=== PATIENT | male | born 1980 | race Caucasian/White ===

== ENCOUNTER → 2016-12-26 | Outpatient (CLI) | payer OTHER ==
[~2016-12-26] MED LIST: LEVO200T6 PO; MULT-513 PO
[2016-12-26 18:45] LABS: BASO % 0.5 %; BASO ABS # 0.05 K/uL (0-0.2); COMPLETE YES; EOS % 0.6 %; HEMATOCRIT 43.1 % (42-52); IG% 0.2 %; LYMPH % 32.3 %; MEAN CELL VOLUME 88.5 fL (80-100); MEAN CORPUSCULAR HEMOGLOBIN 31.6 pg (25-34); MEAN CORPUSCULAR HGB CONC 35.7 g/dl (32-36); MEAN PLATELET VOLUME 9.7 fL (7.4-10.4); MONO % 5.5 %; NEUT % 60.9 %; PLATELET COUNT 251 K/uL (130-400); RED BLOOD COUNT 4.87 M/uL (4.7-6.1); WHITE BLOOD COUNT 10.23 K/uL (4.8-10.8)
[2016-12-26 18:56] LABS: ALT/SGPT 65 U/L (12-78); AST/SGOT 29 U/L (15-37); BLOOD UREA NITROGEN 17 mg/dl (7-18); BUN/CREATININE RATIO 15.6 (10-20); CALCIUM 8.9 mg/dl (8.5-10.1); CARBON DIOXIDE 26 mmol/L (21-32); CHLORIDE 106 mmol/L (98-107); GLUCOSE 92 mg/dl (70-99); POTASSIUM 4.1 mmol/L (3.5-5.1); SODIUM 142 mmol/L (136-145)
[2016-12-26 19:06] LABS: ALB/GLOB RATIO 1.2 (0.9-2); ALKALINE PHOSPHATASE 96 U/L (45-117)
== END | disposition home or self-care (01) ==
LOC: C.LABSPEC 12:59
PROVIDERS: ATTEND Internal Medicine
DX: R53.83 Other fatigue (principal); E03.9 Hypothyroidism, unspecified

== ENCOUNTER → 2017-02-11 | Outpatient (CLI) | payer OTHER ==
--- NOTE | 2017-02-12 06:32 | SPLIT NIGHT TECHNICIAN REPORT ---
[facility] Split Night Polysomnogram - Camp Assistant Report Study date: 02/11/2017 Referring Physician: DR. STARK Name: MAIKOL LYONS Camp Assistant: ALLYSON Mora. Date of : 1980 Height: 36 years, Height 5' 11.5" Sex: Male Weight: 270 lbs Age: 36 Neck Circum: 18.5 in BMI: Medications: 37.13 LEVOTHYROXINE 200 MCG Patient History 36 yr-old male here for a baseline/split study. He has a history of loud snoring, witnessed apneas, and daytime sleepiness. His Bowie scale is 18. The test was started on room air. ETCO2 testing was not utilized during this study. Room 3 Parameters Monitored NPSG: E1-M2, E2-M1, Fp1-M2, Fp2-M1, F3-M2, F4-M2, F4-M1, C3-M2, C4-M2, C4-M1, O1-M2, O2-M2, O2-M1, T3-M2, T4-M1, P3-M2, P4-M1, CHIN1, CHIN2, HR, EKG, Legs, PFLOW, SNOR, FLOW, CFLOW, Tidal Volume, THOR, ABDO, SpO2, PLTH, CPRESS, ETCO2 Wave, ETCO2, pH SLEEP SUMMARY DATA DIAGNOSTIC TREATMENT Lights Out: 10:23:52 PM 1:29:52 AM Lights On: 1:13:52 AM 5:35:22 AM Total Recording Time (TRT): 170.0 min. 245.5 min. Total Sleep Time (TST): 139.5 min. 223.5 min. NREM Time: 126.0 min. 167.0 min. REM Time: 13.5 min. 56.5 min. Sleep Period Time (SPT): 157.5 min. 241.0 min. Sleep Efficiency (SE): 82 % 91 % Sleep Latency: 12.5 min. 4.5 min. Arousal Index: 24.9 14.2 PAP Treatment Levels: 4, 6, 8, 9, 10 * Optimal Pressure(s) SLEEP STAGING DATA DIAGNOSTIC TREATMENT Duration (min) TST % Duration (min) TST % Stage Wake: 30.5 min. -- 22.0 min. -- WASO: 18.0 min. -- 17.5 min. -- NREM: 126.0 min. 90 % 167.0 min. 75 % Stage N1: 17.5 min. 13 % 24.5 min. 11 % Stage N2: 85.0 min. 61 % 121.0 min. 54 % Stage N3: 23.5 min. 17 % 21.5 min. 10 % REM: 13.5 min. 10 % 56.5 min. 25 % POSITIONAL DATA Event Count Index Event Count Index Supine: 215 94.0 55 18.6 Supine NREM: 192 93.6 53 23.1 Supine REM: 23 98 2 4 Non-Supine: 6 39.0 5 1.6 Non-Supine NREM: 6 39.0 5 2.3 Non-Supine REM: N/A N/A 0 0.0 AROUSAL SUMMARY DATA: Event Count Index Event Count Index Apnea Arousals: 29 59.8 5 2.4 Hypopnea Arousals: 14 6.0 10 2.7 Snore Arousals: 3 1.3 2 0.5 PLM Arousals: 0 0.0 5 1.3 Non-Specific Arousals: 5 2.2 19 5.1 Total Arousals: 58 24.9 53 14.2 MYOCLONUS (PLM) Event Count Index Event Count Index PLM: 23 9.9 119 31.9 PLM AROUSAL: 0 0.0 5 1.3 PLM W/O AROUSAL 23 9.9 114 30.6 PLM W/RESP EVENT 4 0.0 16 0.0 MYOCLONUS (PLM) Event Count Index Event Count Index LM: 1 68.8 52 14.0 LM AROUSAL: 1 0.4 2 0.5 LM W/O AROUSAL LM W/RESP EVENT LM NON SPECIFIC 54 23.2 130 34.9 HEART RATE DATA DIAGNOSTIC TREATMENT Sleep (bpm): 57 53 REM (bpm): 92 95 NREM (bpm): 93 94 Tachycardia Count: 0 0 Tachycardia Duration: 0.00 0 Bradycardia Count: 0 0 Bradycardia Duration: 0.00 0 DIAGNOSTIC PORTION TREATMENT PORTION RESPIRATORY DATA Event Count Index Event Count Index AHI: -- 91.6 -- 12.9 RDI: -- 95.1 -- 16 Obstructive Apnea: 117 50.3 0 0.0 Central Apnea: 1 0.4 9 2.4 Mixed Apnea: 21 9.0 0 0.0 Hypopnea: 74 31.8 39 10.5 RERA: 8 3.4 12 3.2 Total Apneas: 139 59.8 9 2.4 RESPIRATORY DATA REM NREM SLEEP REM NREM SLEEP Supine Position: Obstructive Apneas: 11 105 116 0 0 0 Central Apneas: 0 1 1 0 9 9 Mixed Apneas: 1 20 21 0 0 0 Hypopneas: 10 61 71 2 35 37 RERA 1 5 6 0 9 9 Total Supine Events: 23 192 215 2 53 55 Supine AHI: 98 93.6 94.0 4 23.1 18.6 Supine RDI: 102.2 96.1 96.7 3.6 27.8 22.3 REM NREM SLEEP REM NREM SLEEP Non-Supine Position: Obstructive Apneas: N/A 1 1 0 0 0 Central Apneas: N/A 0 0 0 0 0 Mixed Apneas: N/A 0 0 0 0 0 Hypopneas: N/A 3 3 0 2 2 RERA N/A 2 2 0 3 3 Total Supine Events: N/A 6 6 0 5 5 Supine AHI: N/A 39.0 39.0 0.0 2.3 1.6 Supine RDI: N/A 58.5 58.5 0.0 5.7 4.0 OXYGEN DESTAURATION DATA: Event Count Index Event Count Index REM Desaturations: 18 80.0 3 3.2 NREM Desaturations: 159 75.7 48 17.2 SNORE DATA DIAGNOSTIC TREATMENT Snore Time: 23.4 1:34:22 AM Snore TST%: 9 4 Snore Arousal Count: 3 2 Snore Arousal Index: 1.3 0.5 Desaturation Event Summary: Minimum %SpO2 Event Count Mean/Min/Max Duration(sec.) Desaturation Index % Time In Bed > 90 248 17.5 / 4.5 / 54.5 38.8 93.8 86 - 90 8 13.4 / 7.0 / 23.1 19.9 5.9 81 - 85 1 31.8 / 31.8 / 31.8 45.9 0.3 76 - 80 0 N/A 0.0 0.0 71 - 75 0 N/A 0.0 0.0 66 - 70 1 13.8 / 13.8 / 13.8 342.9 0.0 61 - 65 0 N/A 0.0 0.0 56 - 60 0 N/A 0.0 0.0 51 - 55 0 N/A 0.0 0.0 < 50 0 N/A 0.0 0.0 OXYGEN SATURATION DATA DIAGNOSTIC TREATMENT SpO2 Mean Sleep: 93 % 94 % SpO2 Mean REM: 92 % 95 % SpO2 Mean NREM: 93 % 94 % SpO2 Minimum Sleep: 81 % 88 % SpO2 Minimum REM: 81 % 90 % SpO2 Minimum NREM: 85 % 88 % Time Below 90% (TST): 12.9 0.2 Time Below 88% (TST): 3.1 0.0 Total REM NREM Awake <50% 0.0 min. 0.0 min. 0.0 min. 0.0 min. 51 - 60% 0.0 min. 0.0 min. 0.0 min. 0.0 min. 61 - 70% 0.2 min. 0.0 min. 0.0 min. 0.2 min. 71 - 80% 0.0 min. 0.0 min. 0.0 min. 0.0 min. 81 - 90% 25.4 min. 3.5 min. 20.9 min. 1.0 min. 91 - 100% 383.4 min. 66.5 min. 270.3 min. 46.7 min. Average 94 94 94 94 Minimum SpO2 70 81 85 70 Desaturation Event Index 36.2 18.0 42.4 32.0 # Desat. Events below 89% 58 10 44 4 Time(%) with Saturation below 89% 1.8 0.5 1.2 0.1 Time(min.) with Saturation below 89% 7.3 1.9 4.9 0.5 Recording Camp Assistant Comments: Mr. Lyons slept in the right and supine positions. No cardiac arrhythmias were noted. No bruxism noted. Snoring was noted and scored as a 3-4 on a scale of 1 through 5. (0=no snoring, 5=snoring loud enough to be heard through a closed door or down the rowell way). At 1:29 am, he met specific Split-Night criteria during the diagnostic portion of this study. CPAP was initiated at +4 CMH2O and up-titrated to a level of +10 CMH2O, Cflex 2. A Simplus full face mask size medium from [employer] was used during titration. He awoke to use the restroom one time during the night. Mr. Lyons stated that he slept the same as usual. The final report will be interpreted and signed by a sleep physician. The completed physician report will then be placed in the patient medical record. Therapy Event: Therapy (cm H20) 0 4 6 8 9 10 Total Time at Pressure (min.) 170.0 27.4 23.8 57.6 54.8 81.9 TST at Pressure (min.) 139.5 16.4 23.8 51.1 51.3 80.9 # Periods 1 1 1 1 1 1 Sleep Onset (min.) 12.5 4.5 0.0 0.0 0.0 0.0 REM Onset (min.) 114.5 N/A N/A 21.3 N/A 17.4 Sleep Efficiency % 82 59 100 88 93 98 Wakefulness (%) 17.9 40.1 0.0 11.3 6.4 1.2 Wakefulness (min.) 30.5 11.0 0.0 6.5 3.5 1.0 NREM 1 (%) 10.3 56.2 4.5 3.5 5.5 3.7 NREM 1 (min.) 17.5 15.4 1.1 2.0 3.0 3.0 NREM 2 (%) 50.0 3.6 95.5 45.3 62.6 45.0 NREM 2 (min.) 85.0 1.0 22.7 26.1 34.3 36.9 NREM 3 (%) 13.8 0.0 0.0 0.0 25.5 9.2 NREM 3 (min.) 23.5 0.0 0.0 0.0 14.0 7.5 REM (%) 7.9 0.0 0.0 39.9 0.0 40.9 REM (min.) 13.5 0.0 0.0 23.0 0.0 33.5 # Arousals 58 24 4 10 9 6 Arousal Index 24.9 87.7 10.1 11.7 10.5 4.5 # Snore 768 12 85 138 47 16 Snore Index 330.3 43.9 214.6 162.0 54.9 11.9 AHI 91.6 54.8 65.6 3.5 2.3 1.5 AHI Supine 94.0 54.8 65.6 33.1 4.8 1.5 AHI Non-Supine 39.0 N/A N/A 2.4 0.0 N/A NREM AHI 91.0 54.8 65.6 6.4 2.3 0.0 REM AHI 97.8 N/A N/A 0.0 N/A 3.6 RDI 95.1 62.1 68.2 5.9 8.2 3.0 # Obstructive 117 0 0 0 0 0 # Central Ap 1 5 4 0 0 0 # Mixed 21 0 0 0 0 0 # Hypopneas 74 10 22 3 2 2 RERAS 8 2 1 2 5 2 Total Respiratory Events 221 17 27 5 7 4 Time Below SpO2 89.00% (min.) 6.8 0.0 0.0 0.0 0.0 0.0 Mean NREM SpO2 (%) 93 95 94 95 95 94 Mean REM SpO2 (%) 92 N/A N/A 95 N/A 94 Mean Sleep SpO2 (%) 93 95 94 95 95 94 Min NREM SpO2 (%) 85 90 88 89 92 92 Min REM SpO2 (%) 81 N/A N/A 93 N/A 90 Position Supine (min.) 133.3 16.4 23.8 1.8 25.1 80.9 Position Non-supine (min.) 6.2 0.0 0.0 49.3 26.2 0.0 LM Index Sleep 78.7 51.2 161.5 78.7 10.5 12.6 LM Index NREM 80.5 51.2 161.5 89.6 10.5 6.3 LM Index REM 62.2 N/A N/A 65.2 N/A 21.5 Mean Heart Rate (bpm) 57 55 52 55 53 52 Min Heart Rate (bpm) 47 48 46 46 46 41
--- NOTE | 2017-02-14 11:36 | POLYSOMNOGRAPH REPORT ---
CLINICAL DATA: A 36-year-old male with BMI of 37.[address] Mendez and Dr. Rojas for symptoms of obstructive sleep apnea with loud snoring, witnessed apnea and daytime sleepiness. His [place] Sleepiness Score is 18/24. This was a split night study. SLEEP ARCHITECTURE: For the diagnostic portion of the study, total sleep period was 157.5 minutes. Total sleep time was 139.5 minutes divided between 126 minutes of non-REM sleep and 13.5 minutes of REM sleep. Sleep latency was 12.5 minutes. Sleep efficiency was 82%. Arousal index was 24.9. Sleep consisted of stage N1 13%, N2 61%, N3 17%, REM 10%. For the treatment portion of the study, total sleep period was 241 minutes. Total sleep time was 223.5 minutes divided between 167 minutes of non-REM sleep and 56.5 minutes of REM sleep. Sleep onset latency was 4.5 minutes. Sleep efficiency was 91%. Arousal index was 14.2. Sleep consisted of stage N1 11%, N2 54%, N3 10%, REM 25%. AROUSAL DATA: Prior to treatment, 58 arousals were recorded for an index of 24.9 per hour. Following treatment, 53 arousals were recorded for an index of 14.2 per hour. PLM DATA: Prior to treatment, 54 limb movements during sleep were noted for an index of 20.2 per hour. Following treatment 130 limb movements during sleep were noted for an index of 34.9 per hour. EKG: Heart rates ranged from 53 and 95 beats per minute. No arrhythmias were noted. RESPIRATORY DATA: Prior to treatment, severe obstructive sleep apnea/hypopnea was documented. The AHI was 91.6. There were 117 obstructive, 1 central, and 21 mixed apneic episodes. There were 74 hypopneic episodes. The mean AHI following treatment was 12.9. There were 9 central apneic episodes and 39 hypopneic episodes recorded. OXIMETRY DATA: Nocturnal hypoxemia was seen prior to treatment. Oxygen diana was 81% prior to treatment. Mean saturation following treatment was 94%. DIRECTOR SURGICAL'S COMMENTS AND TREATMENT SUMMARY: The patient slept in the right and supine positions. Snoring was severe, rated 3-4 on a scale of 1-5. At 1:29 a.m. he met split night criteria. A Simplus full facemask medium size from [employer] was used. The patient was started on CPAP and titrated up to his optimal pressure setting of 10 cm water pressure. At 10 cm water pressure, the patient slept for 81 minutes with an AHI of 1.5. IMPRESSION: Very severe sleep apnea/hypopnea with an AHI of 91.6 corrected with CPAP 10 cm of water pressure, C-Flex setting 2 utilizing Simplus full face mask size medium from [employer]. RECOMMENDATIONS: The patient should be started on the above noted treatment regimen and seen back in followup within 90 days to document efficacy and compliance. MTDD
== END | disposition home or self-care (01) ==
LOC: C.NEUR 21:00
PROVIDERS: ATTEND Internal Medicine Pulmonary Disease
DX: G47.33 Obstructive sleep apnea (adult) (pediatric) (principal)

== ENCOUNTER → 2017-06-08 | Outpatient (CLI) | payer OTHER ==
[2017-06-08 18:50] LABS: THYROID STIMULATING HORMONE 24.8 uIu/ml (0.300-4.500)
[2017-06-08 20:14] LABS: HEPATITIS B AB POS
== END | disposition home or self-care (01) ==
LOC: C.LABSPEC 17:06
PROVIDERS: ATTEND Internal Medicine
DX: E03.9 Hypothyroidism, unspecified (principal); Z20.2 Contact with and (suspected) exposure to infections with a predominantly sexual mode of transmission

== ENCOUNTER → 2018-01-29 | Outpatient (CLI) | payer OTHER ==
[2018-01-29 18:17] LABS: BASO % 0.3 %; BASO ABS # 0.02 K/uL (0-0.2); EOS % 1.2 %; EOS ABS # 0.09 K/uL (0-0.5); HEMATOCRIT 43.2 % (42-52); HEMOGLOBIN 14.2 g/dL (14.0-18.0); IG# 0.02 K/uL (0.00-0.02); LYMPH % 31.6 %; LYMPH ABS # 2.32 K/uL (1.2-3.4); MEAN CELL VOLUME 90.4 fL (80-100); MEAN CORPUSCULAR HEMOGLOBIN 29.7 pg (25-34); MEAN CORPUSCULAR HGB CONC 32.9 g/dl (32-36); MEAN PLATELET VOLUME 9.6 fL (7.4-10.4); MONO % 10.5 %; MONO ABS # 0.77 K/uL (0.11-0.59); NEUT % 56.1 %; NEUT ABS # 4.12 K/uL (1.4-6.5); PLATELET COUNT 214 K/uL (130-400); RED CELL DISTRIBUTION WIDTH CV 14.9 % (11.5-14.5); RED CELL DISTRIBUTION WIDTH SD 49.3 fL (36.4-46.3); WHITE BLOOD COUNT 7.34 K/uL (4.8-10.8)
[2018-01-29 18:31] LABS: ALBUMIN 3.3 gm/dl (3.4-5.0); ALKALINE PHOSPHATASE 111 U/L (45-117); ALT/SGPT 23 U/L (12-78); AST/SGOT 15 U/L (15-37); BLOOD UREA NITROGEN 11 mg/dl (7-18); CALCIUM 8.6 mg/dl (8.5-10.1); CARBON DIOXIDE 26 mmol/L (21-32); CREATININE 0.93 mg/dl (0.60-1.40); GLUCOSE 118 mg/dl (70-99); SODIUM 140 mmol/L (136-145); TOTAL PROTEIN 7.5 gm/dl (6.4-8.2)
== END | disposition home or self-care (01) ==
LOC: C.LABSPEC 09:48
PROVIDERS: ATTEND Internal Medicine
DX: R53.83 Other fatigue (principal); I10 Essential (primary) hypertension; E03.9 Hypothyroidism, unspecified; G40.909 Epilepsy, unspecified, not intractable, without status epilepticus

== ENCOUNTER → 2018-03-05 | Outpatient (CLI) | payer OTHER ==
[2018-03-05 15:24] LABS: BASO % 0.3 %; BASO ABS # 0.02 K/uL (0-0.2); EOS % 0.6 %; EOS ABS # 0.04 K/uL (0-0.5); HEMATOCRIT 44.4 % (42-52); HEMOGLOBIN 15.3 g/dL (14.0-18.0); IG# 0.03 K/uL (0.00-0.02); LYMPH % 27.4 %; LYMPH ABS # 1.98 K/uL (1.2-3.4); MEAN CELL VOLUME 91.5 fL (80-100); MEAN CORPUSCULAR HEMOGLOBIN 31.5 pg (25-34); MEAN CORPUSCULAR HGB CONC 34.5 g/dl (32-36); MEAN PLATELET VOLUME 8.9 fL (7.4-10.4); MONO % 9.3 %; MONO ABS # 0.67 K/uL (0.11-0.59); NEUT ABS # 4.49 K/uL (1.4-6.5); PLATELET COUNT 186 K/uL (130-400); RED CELL DISTRIBUTION WIDTH CV 14.2 % (11.5-14.5); RED CELL DISTRIBUTION WIDTH SD 47.9 fL (36.4-46.3); WHITE BLOOD COUNT 7.23 K/uL (4.8-10.8)
[2018-03-05 15:43] LABS: ALBUMIN 3.4 gm/dl (3.4-5.0); ALT/SGPT 20 U/L (12-78); BLOOD UREA NITROGEN 12 mg/dl (7-18); CARBON DIOXIDE 28 mmol/L (21-32); CREATININE 1.02 mg/dl (0.60-1.40); GLUCOSE 117 mg/dl (70-99); POTASSIUM 3.7 mmol/L (3.5-5.1); SODIUM 139 mmol/L (136-145)
[2018-03-05 15:54] LABS: ALKALINE PHOSPHATASE 110 U/L (45-117); AST/SGOT 11 U/L (15-37); TOTAL PROTEIN 7.5 gm/dl (6.4-8.2)
== END | disposition home or self-care (01) ==
LOC: C.LAB 14:55
PROVIDERS: ATTEND Psychiatry & Neurology Neurology
DX: S06.9X9D Unspecified intracranial injury with loss of consciousness of unspecified duration, subsequent encounter (principal); X58.XXXD Exposure to other specified factors, subsequent encounter; Z51.81 Encounter for therapeutic drug level monitoring; R53.83 Other fatigue

== ENCOUNTER → 2018-07-08 | Outpatient (CLI) | payer OTHER ==
--- NOTE | 2018-07-08 16:48 | EEG Procedure Note ---
EEG Procedure Note Date of Service Jul 08, 2018. Start / End Times Start Time: 2:32 p.m. End Time: 2:[address] Valentino Baltazar History History of seizures. Traumatic brain injury. Home Medication List Scheduled Levothyroxine Sodium (Levothyroxine Sodium), 200 MCG PO DAILY Multivitamins/Minerals (Mvi With Minerals), 1 TAB PO DAILY Description This is a 21 electrode EEG with a single channel dedicated to limited EKG. The electrodes were placed in accordance with the International 10-20 system. There is a posterior dominant rhythm of 9-10 hertz that is symmetric distributed and attenuates with eye opening. There is a normal anterior to posterior organization. Photic stimulation is unremarkable. There is fairly continuous, moderate amplitude, left temporal slowing in the theta frequency range seen throughout the study. No epileptiform abnormalities observed. Interpretation This EEG reveals findings suggestive of a left temporal lobe structural or functional abnormality. Clinical Correlation The observed focal slowing may be consistent with this patient's history of traumatic brain injury. Epileptiform abnormalities were not observed, however. Further clinical correlation may be needed.
== END | disposition home or self-care (01) ==
LOC: C.NEUR 13:50
PROVIDERS: ATTEND Physical Medicine & Rehabilitation
DX: R56.9 Unspecified convulsions (principal)

== ENCOUNTER 2022-06-20 13:38 | Observation (INO) ==
--- NOTE | 2022-06-20 14:44 | XRay Report ---
RIGHT ANKLE 2 VIEWS CLINICAL HISTORY: Fall. Right ankle injury. FINDINGS: AP and lateral views of the right ankle are obtained. No prior studies are available for co mparison at the time of dictation. The skeletal structures are well mineralized. There is a trimalleo lar fracture of the right ankle joint. A comminuted and displaced spiral fracture of the distal fibul a is noted. There is lateral distraction of the distal fibula by 8 mm. There is a displaced fracture through the medial malleolus. The medial malleolus is displaced approximately 12 mm laterally. There is a vertically oriented nondisplaced fracture through the posterior tibial plafond. Fragments are se parated by approximately 2 mm. There is widening of the anterior joint space at the tibiotalar articu lation. There is lateral distraction of the talus at the tibiotalar joint by approximately 13 mm. The re is also dorsal displacement of the talus by approximately 1 cm. There is valgus deformity at the a nkle joint. There is a joint effusion. Significant overlying soft tissue edema is noted. A large dors al calcaneal enthesophyte is noted. IMPRESSION: Trimalleolar fracture/dislocation of the ankle joint as above. Electronically signed by: Prabhu Wilkins M.D. 06/20/2022 2:42 PM
[2022-06-20] MEDS ORDERED: MoRPHine SULFATE 4 MG/ML 1 ML CARP\\VIAL IV PRN (15:18)
[2022-06-20] MEDS ORDERED: ONDANSETRON INJ 2 MG/ML 2 ML VIAL IV STA (15:18)
[2022-06-20] MEDS ORDERED: fentaNYL citrate 100 MCG/2 ML VIAL IV STA (16:25)
--- NOTE | 2022-06-20 17:27 | XRay Report ---
XR ankle RT min 3V routine CLINICAL HISTORY: s/p reduction TECHNIQUE: 3 views of the right ankle were obtained. Comparison: Comparison is made to chest radiograph 06/20/2022 FINDINGS: Status post reduction and placement of a cast which limits evaluation of fine bony detail. The fractu re fragments are in grossly anatomic alignment and in particular the ankle mortise is intact and appr oximates and than in the prior exam. Soft tissue swelling is seen about the ankle. IMPRESSION: Status post reduction. The fracture fragments are in gross anatomical alignment. ACT 112: Negative or not required by law. Electronically signed by: John Dalal M.D. 06/20/2022 5:25 PM
[2022-06-20] MEDS ORDERED: oxyCODONE/ACETAMINOPHEN 5mg/325mg TAB PO PRN (17:36)
[2022-06-20] MEDS ORDERED: diphenhydrAMINE Capsule 25 MG CAP PO PRN (17:36)
[2022-06-20] MEDS ORDERED: ZOLPIDEM TARTRATE 5 MG TAB PO PRN (17:36)
[2022-06-20] MEDS ORDERED: ALUMINUM/MAGNESIUM SUSP 30 ML UDC PO PRN (17:36)
[2022-06-20] MEDS ORDERED: ONDANSETRON INJ 2 MG/ML 2 ML VIAL IV PRN ×2 (17:36→18:43)
[2022-06-20] MEDS ORDERED: METOCLOPRAMIDE HCL INJ 5 MG/ML 2 ML VIAL IV PRN (17:36)
[2022-06-20] MEDS ORDERED: MAGNESIUM HYDROXIDE SUSP 30 ML UDC PO PRN (17:36)
[2022-06-20 17:46] LABS: Basophils # (auto) 0.04 K/uL (0-0.2); Basophils % (auto) 0.3 %; Eosinophils # (auto) 0.01 K/uL (0-0.50); Eosinophils % (auto) 0.1 %; Hemoglobin 14.6 g/dl (14.0-18.0); Immature Granulocytes # (auto) 0.07 K/uL (0.00-0.02); Immature Granulocytes % (auto) 0.5 %; Lymphocytes % (auto) 15.3 %; Mean Corpuscular Hemoglobin 30.9 pg (25.0-34.0); Mean Corpuscular Hgb Conc 33.2 g/dL (32.0-36.0); Mean Platelet Volume 9.2 fL (9.4-12.4); Monocytes # (auto) 0.73 K/uL (0.24-0.82); Monocytes % (auto) 5.3 %; Neutrophils # (auto) 10.81 K/uL (1.4-6.5); Neutrophils % (auto) 78.5 %; Platelet Count 257 K/uL (130-400); RDW Coefficient of Variation 11.9 % (11.5-14.5); RDW Standard Deviation 40.5 fL (36.4-46.3); Red Blood Count 4.73 M/uL (4.63-6.08); White Blood Count 13.76 K/ul (4.8-10.8)
[2022-06-20 18:05] LABS: Albumin Globulin Ratio 1.3 (0.9-2); Albumin Level 4.1 gm/dl (3.4-5.0); BUN Creatinine Ratio 9.8 (10-20); Bilirubin,Total 0.9 mg/dl (0.2-1.0); Calcium 9.1 mg/dl (8.5-10.1); Creatinine Clr Calc Pharmacy 119.3 ml/min; Est GFR (African American) 92.7 ml/min; Globulin 3.1 gm/dl (2.5-4.0); Potassium 4.6 mmol/L (3.5-5.1); Total Protein 7.2 gm/dl (6.0-8.3)
[2022-06-20] MEDS ORDERED: ePHEDrine sulfate 50 MG/ML AMP IV PRN (18:43)
[2022-06-20] MEDS ORDERED: ATROPINE SULFATE 0.1 MG/ML 10ML SYR IV PRN (18:43)
[2022-06-20] MEDS ORDERED: HYDROmorphone INJ 2 MG/ML SYR/VIAL IV PRN (18:43)
--- NOTE | 2022-06-20 18:43 | Anesthesiology Consultation ---
Date of Service June 20, 2022 Assessment & Plan ASA ASA3 Proposed Anesthesia Anesthesia Type: General Risk / Benefits Reviewed With: PT / POA / Parent / Guardian, Accepts Plan and Informed Consent Obtained History Surgery Operation Date: 06/20/22 13:05 Proposed Procedures p Right Trimalleolar Open Reduction Internal Fixation Ankle - Sedrick Navarrete DO Height/Weight Height: 6 ft Weight: 131.6 kg Allergies Allergy/AdvReac Type Severity Reaction Status Date / Time Cephalosporins Allergy Unknown KEFLEX Verified 05/29/19 22:15 Sulfa (Sulfonamide Allergy Unknown Verified 05/29/19 22:15 Antibiotics) Medications Home Medications Medication Instructions Recorded Confirmed Last Taken amlodipine 5 mg tablet 5 mg PO QAM 05/29/19 05/29/19 05/29/19 levothyroxine 200 mcg tablet 200 mcg PO QAM 05/29/19 05/29/19 05/29/19 levothyroxine 25 mcg tablet 25 mcg PO QAM 05/29/19 05/29/19 05/29/19 meclizine 25 mg tablet 25 mg PO TID PRN dizziness #15 tabs 05/29/19 Unknown ondansetron 4 mg disintegrating 4 mg PO Q6H PRN nausea and 05/29/19 Unknown tablet vomiting #10 tabs Active Medications Generic Name Dose Route Start Last Admin Trade Name Freq PRN Reason Stop Dose Admin Morphine Sulfate 4 mg 06/20/22 15:18 06/20/22 15:39 Morphine Sulfate 4 Mg/Ml 1 Ml Carp\Vial IV 07/04/22 15:17 4 mg Q30M PRN Administration Pain NPO Date Last Intake of Fluids: 06/20/22 Time Last Intake of Fluids: 14:00 Last Intake of Fluids Comment: 6oz of gatorade Date Last Intake of Solids: 06/19/22 Time Last Intake of Solids: 17:00 Exercise / Class Metabolic Activity II 4-5 Yardwork/Stairs/Walk up hill Past Surgical History Surgical History History of appendectomy Past Anesthesia History No Hx of Anesthesia Complications and No Family Hx of Anesthesia Complications History of PONV No Hx of PONV and No Hx of Motion Sickness Social History Smoking Status: Never smoker Review of Systems denies fever/cough/ colds/ chest pain/ SOB/ +MARAH denies MARAH Physical Exam Vital Signs Last Vital Signs Temp 36.8 C 06/20/22 18:17 Pulse 72 06/20/22 18:17 Resp 18 06/20/22 18:17 BP 144/89 H 06/20/22 18:17 Pulse Ox 96 06/20/22 18:17 O2 Del Method 06/20/22 18:17 ENMT Mouth: no TMJ abnormality and no dentition abnormality Thyromental Distance: > or= 3.5 Finger Breadths Mallampati Class: II Neck + short neck, + thick neck and + facial hair; neck extension not limited Respiratory normal respiratory effort; no respiratory distress Auscultation: lungs clear to auscultation bilaterally Cardiovascular Rate/Rhythm: regular rate and regular rhythm Neurologic moves all extremities Psychiatric Orientation: alert and oriented x 3 Testing Laboratory Results 06/20/22 17:30 06/20/22 17:30
[2022-06-20] MEDS ORDERED: MIDAZOLAM HCL 1 MG/ML 2ML VIAL ONE (19:02)
[2022-06-20] MEDS ORDERED: fentaNYL citrate 100 MCG/2 ML VIAL ONE ×5 (19:02→22:58)
[2022-06-20] MEDS ORDERED: ONDANSETRON INJ 2 MG/ML 2 ML VIAL ONE (19:06)
[2022-06-20] MEDS ORDERED: LIDOCAINE 2% MPF LOCAL 5 ML VIAL INFIL ONE (19:06)
[2022-06-20] MEDS ORDERED: DEXAMETHASONE SOD INJ 4 MG/ML VIAL ONE (19:06)
[2022-06-20] MEDS ORDERED: ROCURONIUM BROMIDE 10 MG/ML 5 ML VIAL IV ONE (19:06)
[2022-06-20] MEDS ORDERED: PROPOFOL IV EMULSION 10 MG/ML 20 ML VIAL IV ONE (19:06)
[2022-06-20] MEDS ORDERED: ceFAZolin 330 MG/ML 1 GM VIAL ONE (19:17)
[2022-06-20] MEDS ORDERED: BUPIVACAINE 0.5 % 5 MG/1 ML MPF 30ML VIAL ONE (19:17)
[2022-06-20] MEDS ORDERED: BUPIVACAINE 0.25% 30 ML VIAL ONE (19:19)
--- NOTE | 2022-06-20 19:21 | History & Physical Report ---
Date of Service June 20, 2022 Assessment & Plan (1) Closed right trimalleolar fracture: Plan: plan for ORIF right ankle trimalleolar fracture, has been NPO today, did have some Gatorade around 1:00pm. will remain NPO, splint, Ice/elevate. plan to keep overnight for observation and remain NWB The risks and benefits have been discussed including, but not limited to, risk of infection, nerve injury, stiffness, loss of motion, failure to improve, etc. Reasonable outcomes and options of treatment were discussed. An explanation of appropriate alternatives to the procedure that may be advantageous were discussed and their risks and benefits, as well as the risks and benefits of not proceeding with treatment. I offered to answer any additional inquiries concerning the treatment involved. All the patient's questions were answered. The patient is agreeable, understanding of the treatment plan and alternatives, and wishes to proceed with the treatment plan. History of Present Illness Chief Complaint: right ankle injury Primary Care Provider: NO PCP Deep is a 41-year-old male presented to the emergency department after sustaining a fall and injuring his right ankle. Patient was in a chair similar to a rocking chair in his home, when the chair broke, and the patient landed awkwardly onto his ankle. He does not have any blood or bleeding. He is unable to ambulate. He rates the pain an 8/10 that worsens with certain movement. Allergies Allergy/AdvReac Type Severity Reaction Status Date / Time Cephalosporins Allergy Unknown KEFLEX Verified 05/29/19 22:15 Sulfa (Sulfonamide Allergy Unknown Verified 05/29/19 22:15 Antibiotics) Home Medications Medication Instructions Recorded Confirmed Type amlodipine 5 mg tablet 5 mg PO QAM 05/29/19 05/29/19 History levothyroxine 200 mcg tablet 200 mcg PO QAM 05/29/19 05/29/19 History levothyroxine 25 mcg tablet 25 mcg PO QAM 05/29/19 05/29/19 History meclizine 25 mg tablet 25 mg PO TID PRN dizziness #15 tabs 05/29/19 Rx ondansetron 4 mg disintegrating 4 mg PO Q6H PRN nausea and 05/29/19 Rx tablet vomiting #10 tabs Past Med/Surg History Surgical History History of appendectomy Social History Smoking Status: Never smoker Feels Safe at Home: Yes Review of Systems Review of Systems: All systems reviewed & are unremarkable except as noted in HPI & below Constitutional: no fever, no chills and no sweats Respiratory: no cough and no dyspnea Cardiovascular: no chest pain, no dyspnea and no orthopnea Gastrointestinal: no abdominal pain, no nausea and no vomiting Musculoskeletal: as per Subjective / HPI Physical Exam Physical Exam: Vital Signs Temp Pulse Pulse Resp BP BP Pulse Ox 06/20/22 18:17 36.8 C 72 18 144/89 H 96 06/20/22 17:31 72 19 138/81 93 06/20/22 17:00 70 19 93 06/20/22 15:39 75 18 94 06/20/22 13:53 36.8 C 78 20 149/97 H 98 O2 Del Method 06/20/22 18:17 Room Air 06/20/22 17:31 Room Air 06/20/22 17:00 Room Air 06/20/22 15:39 Room Air 06/20/22 13:53 Room Air Intake and Output 06/20/22 06/20/22 06/20/22 06:59 14:59 22:59 Other: Weight 131.6 kg Weight Measureme nt Method Built in [facility] Patient Weight 06/21/22 06:59 Weight 131.6 kg Constitutional: WD/WN, vitals as above no acute distress Respiratory: normal respiratory effort, lungs clear to auscultation no respiratory distress, no labored breathing and does not use accessory muscles Cardiovascular: RRR, no murmur, no edema Gastrointestinal (Abdomen): normal bowel sounds, soft, nontender, no hepatosplenomegaly Musculoskeletal: right ankle: currently splinted, calf SNT. sensation intact toes. thigh soft, non-tender Results & Data Results & Data ([facility]) Vital Signs (Past 12 Hours) Vital Signs Temp Pulse Pulse Resp BP BP Pulse Ox 06/20/22 18:17 36.8 C 72 18 144/89 H 96 06/20/22 17:31 72 19 138/81 93 06/20/22 17:00 70 19 93 06/20/22 15:39 75 18 94 06/20/22 13:53 36.8 C 78 20 149/97 H 98 O2 Del Method 06/20/22 18:17 Room Air 06/20/22 17:31 Room Air 06/20/22 17:00 Room Air 06/20/22 15:39 Room Air 06/20/22 13:53 Room Air Diagnostic Findings Laboratory Results WBC 13.76 K/ul (4.8-10.8) H 06/20/22 17:30 RBC 4.73 M/uL (4.63-6.08) 06/20/22 17:30 Hgb 14.6 g/dl (14.0-18.0) 06/20/22 17:30 Hct 44.0 % (40.1-51.0) 06/20/22 17:30 MCV 93.0 fL (80.0-100.0) 06/20/22 17:30 MCH 30.9 pg (25.0-34.0) 06/20/22 17: MCHC 33.2 g/dL (32.0-36.0) 06/20/22 17:30 RDW Std Deviation 40.5 fL (36.4-46.3) 06/20/22 17:30 RDW Coeff of Emily 11.9 % (11.5-14.5) 06/20/22 17: Plt Count 257 K/uL (130-400) 06/20/22 17:30 MPV 9.2 fL (9.4-12.4) L 06/20/22 17:30 Immature Gran % (Auto) 0.5 % 06/20/22 17:30 Neut % (Auto) 78.5 % 06/20/22 17:30 Lymph % (Auto) 15.3 % 06/20/22 17:30 [place] % (Auto) 5.3 % 06/20/22 17:30 Eos % (Auto) 0.1 % 06/20/22 17:30 Baso % (Auto) 0.3 % 06/20/22 17:30 Neut # (Auto) 10.81 K/uL (1.4-6.5) H 06/20/22 17:30 Lymph # (Auto) 2.10 K/uL (1.2-3.4) 06/20/22 17:30 [place] # (Auto) 0.73 K/uL (0.24-0.82) 06/20/22 17:30 Eos # (Auto) 0.01 K/uL (0-0.50) 06/20/22 17:30 Baso # (Auto) 0.04 K/uL (0-0.2) 06/20/22 17:30 Immature Gran # (Auto) 0.07 K/uL (0.00-0.02) H 06/20/22 17:30 Sodium 136 mmol/L (136-145) 06/20/22 17:30 Potassium 4.6 mmol/L (3.5-5.1) 06/20/22 17:30 Chloride 104 mmol/L (98-107) 06/20/22 17:30 Carbon Dioxide 26 mmol/L (21-32) 06/20/22 17:30 Anion Gap 6 (3-11) 06/20/22 17:30 BUN 11 mg/dl (6-23) 06/20/22 17:30 Creatinine 1.12 mg/dl (0.6-1.4) 06/20/22 17:30 Est Cr Clr Drug Dosing 119.3 ml/min 06/20/22 17:30 Est GFR ( Amer) 92.7 ml/min 06/20/22 17:30 Est GFR (Non-Af Amer) 80.0 ml/min 06/20/22 17:30 BUN/Creatinine Ratio 9.8 (10-20) L 06/20/22 17:30 Glucose 100 mg/dl (70-99(Fasting)) H 06/20/22 17:30 Calcium 9.1 mg/dl (8.5-10.1) 06/20/22 17:30 Total Bilirubin 0.9 mg/dl (0.2-1.0) 06/20/22 17:30 AST 26 U/L (13-39) 06/20/22 17:30 ALT 44 U/L (7-52) 06/20/22 17:30 Alkaline Phosphatase 103 U/L (34-104) 06/20/22 17:30 Total Protein 7.2 gm/dl (6.0-8.3) 06/20/22 17:30 Albumin 4.1 gm/dl (3.4-5.0) 06/20/22 17:30 Globulin 3.1 gm/dl (2.5-4.0) 06/20/22 17:30 Albumin/Globulin Ratio 1.3 (0.9-2) 06/20/22 17:30 SARS-CoV-2, RNA, NAAT NEGATIVE (NEGATIVE) 06/20/22 17:10 Impressions Ankle X-Ray 06/20/22 16:50 XR ankle RT min 3V routine CLINICAL HISTORY: s/p reduction TECHNIQUE: 3 views of the right ankle were obtained. Comparison: Comparison is made to chest radiograph 06/20/2022 FINDINGS: Status post reduction and placement of a cast which limits evaluation of fine bony detail. The fracture fragments are in grossly anatomic alignment and in particular the ankle mortise is intact and approximates and than in the prior exam. Soft tissue swelling is seen about the ankle. IMPRESSION: Status post reduction. The fracture fragments are in gross anatomical alignment. ACT 112: Negative or not required by law. Electronically signed by: John Dalal M.D. 06/20/2022 5:25 PM
--- NOTE | 2022-06-20 19:22 | Emergency Department Note ---
History of Present Illness General Chief complaint: Ankle Pain Stated complaint: R ANKLE PAIN Time Seen by Provider: 06/20/22 14:00 History of Present Illness Maximum Pain Intensity: 8 This is a 41-year-old male presenting to the emergency department for evaluation of right ankle pain after falling at home just prior to arrival. Patient was in a chair similar to a rocking chair in his home, when the chair broke, and the patient landed awkwardly onto his ankle. He does not have any blood or bleeding. He is unable to ambulate. He rates the pain an 8/10 that worsens with certain movement. He has not eaten today. He last drink Gatorade around 1 PM. Home Medications Medication Instructions Recorded Confirmed Type amlodipine 5 mg tablet 5 mg PO QAM 05/29/19 05/29/19 History levothyroxine 200 mcg tablet 200 mcg PO QAM 05/29/19 05/29/19 History levothyroxine 25 mcg tablet 25 mcg PO QAM 05/29/19 05/29/19 History meclizine 25 mg tablet 25 mg PO TID PRN dizziness #15 tabs 05/29/19 Rx ondansetron 4 mg disintegrating 4 mg PO Q6H PRN nausea and 05/29/19 Rx tablet vomiting #10 tabs Allergies Allergy/AdvReac Type Severity Reaction Status Date / Time Cephalosporins Allergy Unknown KEFLEX Verified 05/29/19 22:15 Sulfa (Sulfonamide Allergy Unknown Verified 05/29/19 22:15 Antibiotics) Past Med/Surg History Medical History Hypertension Hypothyroid Surgical History History of appendectomy Social History Smoking Status: Never smoker Feels Safe at Home: Yes Review of Systems A total of 10 systems reviewed and were otherwise negative Physical Exam Vital Signs Vital Signs - 24 hr 06/20/22 13:53 06/20/22 15:39 06/20/22 17:00 Temperature 36.8 C Temperature Source Temporal Artery Scan Pulse Rate 78 Pulse Rate [Finger] 75 70 Pulse Rhythm [Finger] Pulse Strength [Finger] Respiratory Rate 20 18 19 Respiratory Effort / Characteristics Non-Labored Non-Labored Spontaneous Non-Labored Spontaneous Respiratory Depth Normal Normal Normal Respiratory Pattern Blood Pressure 149/97 H Blood Pressure [Left Arm] Blood Pressure Mean 114 Blood Pressure Mean [Left Arm] Blood Pressure Position [Left Arm] Pulse Oximetry 98 94 93 Oxygen Delivery Method Room Air Room Air Room Air Sepsis Recent Fever Within 48 Hours No Sepsis New/Unexplained Change in Mental Status N/A Sepsis Action Taken by Nursing No Action Required 06/20/22 17:31 06/20/22 18:17 Temperature 36.8 C Temperature Source Oral Pulse Rate Pulse Rate [Finger] 72 72 Pulse Rhythm [Finger] Regular Pulse Strength [Finger] Normal Respiratory Rate 19 18 Respiratory Effort / Characteristics Non-Labored Spontaneous Non-Labored Spontaneous Respiratory Depth Normal Normal Respiratory Pattern Regular Blood Pressure Blood Pressure [Left Arm] 138/81 144/89 H Blood Pressure Mean Blood Pressure Mean [Left Arm] 100 107 Blood Pressure Position [Left Arm] Semi-fowlers Pulse Oximetry 93 96 Oxygen Delivery Method Room Air Room Air Sepsis Recent Fever Within 48 Hours Sepsis New/Unexplained Change in Mental Status Sepsis Action Taken by Nursing VITALS: Vitals are noted on the nurse's note and reviewed by myself. Vital signs stable. GENERAL: Well-developed, well-nourished, white male, who is in no acute distress and resting comfortably. Patient is cooperative with the examination. HEAD: Normocephalic atraumatic. HEART: Regular rate and rhythm without murmurs gallops or rubs. LUNGS: Clear to auscultation bilaterally without wheezes, rales or rhonchi. No retractions or accessory muscle use. MUSCULOSKELETAL: There is notable deformity of the right ankle with ecchymosis and edema. No blood or bleeding is identified. Neurovascular status appears intact distally. No tenderness of the right knee. No other musculoskeletal injuries noted. Compartments are soft. NEURO: Patient was alert and oriented to person place and time. CN II through XII grossly intact. GCS 15. Course Administered Medications Morphine Sulfate (Morphine Sulfate 4 Mg/Ml 1 Ml Carp\Vial) 4 mg IV Q30M PRN PRN Reason: Pain Stop: 07/04/22 15:17 Last Admin: 06/20/22 15:39 Dose: 4 mg Documented By: Discontinued Medications Cefazolin Sodium (Cefazolin 3000mg/72.5 Ml Bag) Confirm Administered Dose 3,000 mg IV .STData Maid-MED ONE Stop: 06/20/22 19:25 Last Admin: 06/20/22 19:33 Dose: 3,000 mg Documented By: [id number] Fentanyl Citrate (Fentanyl Citrate 100 Mcg/2 Ml Vial) 100 mcg IV NOW STA Stop: 06/20/22 16:26 Last Admin: 06/20/22 16:31 Dose: 100 mcg Documented By: KJ Ondansetron HCl (Ondansetron Inj 2 Mg/Ml 2 Ml Vial) 4 mg IV NOW STA Stop: 06/20/22 15:19 Last Admin: 06/20/22 15:37 Dose: 4 mg Documented By: MH Medical Decision Making Differential Diagnosis Differential diagnosis includes, but is not limited to: Sprain, strain, fracture, dislocation, subluxation, contusion, and others Laboratory Data Result diagrams: 06/20/22 17:30 06/20/22 17:30 Lab Results 06/20/22 06/20/22 06/20/22 Range/Units 17:10 17:30 17:30 WBC 13.76 H (4.8-10.8) K/ul RBC 4.73 (4.63-6.08) M/uL Hgb 14.6 (14.0-18.0) g/dl Hct 44.0 (40.1-51.0) % MCV 93.0 (80.0-100.0) fL MCH 30.9 (25.0-34.0) pg MCHC 33.2 (32.0-36.0) g/dL RDW Std Deviation 40.5 (36.4-46.3) fL RDW Coeff of Emily 11.9 (11.5-14.5) % Plt Count 257 (130-400) K/uL MPV 9.2 L (9.4-12.4) fL Immature Gran % (Auto) 0.5 % Neut % (Auto) 78.5 % Lymph % (Auto) 15.3 % [place] % (Auto) 5.3 % Eos % (Auto) 0.1 % Baso % (Auto) 0.3 % Neut # (Auto) 10.81 H (1.4-6.5) K/uL Lymph # (Auto) 2.10 (1.2-3.4) K/uL [place] # (Auto) 0.73 (0.24-0.82) K/uL Eos # (Auto) 0.01 (0-0.50) K/uL Baso # (Auto) 0.04 (0-0.2) K/uL Immature Gran # (Auto) 0.07 H (0.00-0.02) K/uL Sodium 136 (136-145) mmol/L Potassium 4.6 (3.5-5.1) mmol/L Chloride 104 (98-107) mmol/L Carbon Dioxide 26 (21-32) mmol/L Anion Gap 6 (3-11) BUN 11 (6-23) mg/dl Creatinine 1.12 (0.6-1.4) mg/dl Est Cr Clr Drug Dosing 119.3 ml/min Est GFR ( Amer) 92.7 ml/min Est GFR (Non-Af Amer) 80.0 ml/min BUN/Creatinine Ratio 9.8 L (10-20) Glucose 100 H (70-99(Fasting)) mg/dl Calcium 9.1 (8.5-10.1) mg/dl Total Bilirubin 0.9 (0.2-1.0) mg/dl AST 26 (13-39) U/L ALT 44 (7-52) U/L Alkaline Phosphatase 103 (34-104) U/L Total Protein 7.2 (6.0-8.3) gm/dl Albumin 4.1 (3.4-5.0) gm/dl Globulin 3.1 (2.5-4.0) gm/dl Albumin/Globulin Ratio 1.3 (0.9-2) SARS-CoV-2, RNA, NAAT NEGATIVE (NEGATIVE) Imaging Data Radiologist's Impression: Ankle X-Ray 06/20/22 14:01 RIGHT ANKLE 2 VIEWS CLINICAL HISTORY: Fall. Right ankle injury. FINDINGS: AP and lateral views of the right ankle are obtained. No prior studies are available for comparison at the time of dictation. The skeletal structures are well mineralized. There is a trimalleolar fracture of the right ankle joint. A comminuted and displaced spiral fracture of the distal fibula is noted. There is lateral distraction of the distal fibula by 8 mm. There is a displaced fracture through the medial malleolus. The medial malleolus is displaced approximately 12 mm laterally. There is a vertically oriented nondisplaced fracture through the posterior tibial plafond. Fragments are by approximately 2 mm. There is widening of the anterior joint space at the tibiotalar articulation. There is lateral distraction of the talus at the tibiotalar joint by approximately 13 mm. There is also dorsal displacement of the talus by approximately 1 cm. There is valgus deformity at the ankle joint. There is a joint effusion. Significant overlying soft tissue edema is noted. A large dorsal calcaneal enthesophyte is noted. IMPRESSION: Trimalleolar fracture/dislocation of the ankle joint as above. Electronically signed by: Prabhu Wilkisn M.D. 06/20/2022 2:42 PM Ankle X-Ray 06/20/22 16:50 XR ankle RT min 3V routine CLINICAL HISTORY: s/p reduction TECHNIQUE: 3 views of the right ankle were obtained. Comparison: Comparison is made to chest radiograph 06/20/2022 FINDINGS: Status post reduction and placement of a cast which limits evaluation of fine bony detail. The fracture fragments are in grossly anatomic alignment and in particular the ankle mortise is intact and approximates and than in the prior exam. Soft tissue swelling is seen about the ankle. IMPRESSION: Status post reduction. The fracture fragments are in gross anatomical alignment. ACT 112: Negative or not required by law. Electronically signed by: John Dalal M.D. 06/20/2022 5:25 PM MDM Narrative Physical exam and history were performed. Nursing notes, EMR, and Medication List were personally reviewed. Patient appears to have suffered awkward fall with subsequent injury to his right lower leg. X-ray was obtained and reviewed by myself and radiology and is concerning for a trimalleolar fracture. IV access was established and patient was given IV morphine and IV Zofran. He was kept n.p.o. The case was discussed with the on-call orthopedist, Dr. Navarrete, who was kind enough to review the patient's course and imaging. Initial recommendation is for attempted reduction as the patient is slightly dislocated, as well as splinting. This was performed at bedside and patient tolerated this well with neurovascular status remaining intact. Repeat x-rays do show improved anatomic alignment, and the patient does feel somewhat improved with some stability around the right ankle. Overall the patient does not seem well for discharge, and does seem to be a surgical candidate. Basic labs and COVID were gathered, and these are unremarkable. The patient remained in stable condition in the ER, and Dr. Navarrete was able to schedule the patient for definitive surgical repair later today. The patient was evaluated by the orthopedic team here in the ER. Please see their dictation for further patient course, plan, and disposition. The chart was completed utilizing [employer] Speech Voice Recognition Software. Grammatical errors, random word insertions, pronoun errors, and incomplete sentences are an occasional consequence of this system due to software limitations, ambient noise, and hardware issues. Any formal questions or concerns about the content, text, or information contained within the body of this dictation should be directly addressed to the provider for clarification. . Impression & Plan Closed right trimalleolar fracture Discharge Plan Visit Data Chief Complaint: Ankle Pain Stated Complaint: R ANKLE PAIN ED Provider: Roc Sim ED Midlevel Provider: Tre Vazquez Discharge Problem: Closed right trimalleolar fracture Patient Disposition: Admitted As Inpatient Discharge Instructions Interventions: ED Discharge Assessment Last Done: 06/20/22 18:10
--- NOTE | 2022-06-20 19:23 | History & Physical Bridge Note ---
Date of Service June 20, 2022 History & Physical Bridge Note I have examined the patient, reviewed the History & Physical and in the interval since the performance of the History & Physical I have noted the following changes of clinical significance: no changes noted
[2022-06-20] MEDS ORDERED: ceFAZolin 3000MG/72.5 ML BAG IV ONE (19:24)
[2022-06-20] MEDS ORDERED: DOCUSATE SODIUM 100 MG CAP PO SCH (21:00)
--- NOTE | 2022-06-20 22:17 | Post Operative Brief Note ---
Immediate Post Op Note v1 Date of Surgery June 20, 2022 Pre & Post Diagnosis Operation Date: 06/20/22 13:05 Pre-Op Diagnosis: Closed right displaced, comminuted trimalleolar ankle fracture dislocation, syndesmotic disruption Post-Op Diagnosis: Closed right displaced, comminuted trimalleolar ankle fracture dislocation, syndesmotic disruption I identified the patient and participated in the time-out.: Yes Procedure Operation Date: 06/20/22 13:05 Actual Procedures p Open Reduction Internal Fixation Right displaced, comminuted trimalleolar Fracture dislocation s Open reduction internal fixation syndesmotic disruption with 4.5 mm solid screw (Right) - Sedrick Navarrete DO Surgeon Sedrick Navarrete DO Track Dresser Dimitris Cabral PA-C Estimated Blood Loss 30 Findings Consistent with Post-Op Diagnosis Anesthesia Type General Regional Complications none Disposition Accompanied Patient To Recovery: No
--- NOTE | 2022-06-20 22:22 | Fluoroscopy Report ---
INTRAOPERATIVE RADIOGRAPHS CLINICAL HISTORY: Open reduction and internal fixation of the right ankle. Fluoroscopy time: 39 seconds. FINDINGS: 2 spot fluoroscopic views of the right ankle are correlated with radiographs performed sun ier the same day 06/20/2022. There is a trimalleolar fracture. 2 cortical lag screws transfix a fractu re of the medial malleolus. There has been buttress plate fixation of a distal fibular fracture. Nume elías cortical lag screws transfix the buttress plate, and a long cortical lag screw transfixes the little th the distal tibia and fibula. Near-anatomic alignment is restored. The orthopedic hardware appears intact. Overlying soft tissue edema is noted. IMPRESSION: Intraoperative images from open reduction and internal fixation of right ankle fractures as above. Electronically signed by: Prabhu Wilkins M.D. 06/20/2022 10:21 PM
[2022-06-20] MEDS: fentaNYL citrate 100 MCG/2 ML VIAL IV PRN ×4 (22:41→23:04)
--- NOTE | 2022-06-20 22:47 | Anesthesiology Progress Note ---
Date of Service June 20, 2022 Anesthesia Post Procedure Vital Signs Vital Signs: Temp Pulse Pulse Pulse Resp BP BP 06/20/22 22:40 86 13 145/84 H 06/20/22 22:30 36.5 C 86 17 138/84 06/20/22 18:17 36.8 C 72 18 144/89 H 06/20/22 17:31 72 19 138/81 06/20/22 17:00 70 19 06/20/22 15:39 75 18 06/20/22 13:53 36.8 C 78 20 149/97 H Pulse Ox O2 Del Method 06/20/22 22:40 93 Room Air 06/20/22 22:30 94 Room Air 06/20/22 18:17 96 Room Air 06/20/22 17:31 93 Room Air 06/20/22 17:00 93 Room Air 06/20/22 15:39 94 Room Air 06/20/22 13:53 98 Room Air Pain Intensity Right Ankle: Pain Intensity: 5 Transfer of Care Handoff Completed per policy Notes Mental Status: alert / awake / arousable and participated in evaluation Patient Amnestic to Procedure: Yes Nausea / Vomiting: adequately controlled Pain: adequately controlled Airway Patency, RR, SpO2: stable & adequate BP & HR: stable & adequate Hydration State: stable & adequate Anesthetic Complications: no major complications apparent and Pt Satisfied with anesthetic care
[2022-06-21] MEDS ORDERED: SODIUM CHLORIDE 0.9% 1000ML 1,000 ML IV SCH (00:19)
[2022-06-21] MEDS ORDERED: MAGNESIUM HYDROXIDE SUSP 30 ML UDC PO PRN (00:19)
[2022-06-21] MEDS ORDERED: MECLIZINE HCL 25 MG TAB PO PRN (00:19)
[2022-06-21] MEDS ORDERED: METOCLOPRAMIDE HCL INJ 5 MG/ML 2 ML VIAL IV PRN (00:19)
[2022-06-21] MEDS ORDERED: SENNA 8.6 MG TAB PO SCH (00:19)
[2022-06-21] MEDS ORDERED: NALOXONE HCL 0.4 MG/1 ML VIAL/CARP IV PRN (00:19)
[2022-06-21] MEDS ORDERED: HYDROmorphone INJ 1 MG/ML SYRINGE IV PRN (00:19)
[2022-06-21] MEDS ORDERED: ONDANSETRON INJ 2 MG/ML 2 ML VIAL IV PRN (00:19)
[2022-06-21] MEDS ORDERED: bisacodyL 10 MG SUPP PR PRN (00:19)
[2022-06-21] MEDS: ASPIRIN 81 MG ECTAB PO SCH ×2 (01:29→08:39)
[2022-06-21] MEDS: DOCUSATE SODIUM 100 MG CAP PO SCH ×2 (01:30→08:39)
[2022-06-21] MEDS: oxyCODONE HCL IR 5 MG TAB (IMMEDIATE RELEASE) PO PRN ×2 (01:45→12:06)
--- NOTE | 2022-06-21 02:15 | Operative Report (OR) ---
DATE OF PROCEDURE: 06/20/2022. PREOPERATIVE DIAGNOSES: 1. Right displaced, comminuted trimalleolar ankle fracture dislocation. 2. Syndesmotic disruption. POSTOPERATIVE DIAGNOSES: 1. Right displaced, comminuted trimalleolar ankle fracture dislocation. 2. Syndesmotic disruption. PROCEDURES PERFORMED: 1. Open reduction and internal fixation of right displaced, comminuted trimalleolar ankle fracture dislocation. 2. Open reduction and internal fixation of syndesmotic disruption with a Synthes 4.5 mm solid screw. SURGEON: Sedrick Navarrete DO. TEXTILE DYER: Dimitrsi Cabral PA-C who was present for patient positioning, sterile prep and drape, management of retractors and instruments. He was present through the critical portions of the case including wound closure, application of sterile dressing and transport of the patient to recovery. ANESTHESIA: General, regional. SPECIMENS: None. DRAINS: None. COMPLICATIONS: None. BLOOD LOSS: 30 mL, primarily hematoma. PERTINENT HISTORY: This is a 41-year-old gentleman sustained a twisting fall onto his right ankle. He is unable to ambulate. Transported to [facility], he was evaluated. Radiographs were obtained, noted to have a fracture dislocation of his right ankle. He underwent closed reduction by the ER staff. Had post-reduction radiographs, noted to have a trimalleolar comminuted fracture dislocation of the right ankle with suspicion for syndesmotic disruption. The patient was then placed in a splint and then orthopedics was consulted. The patient was then prepped for surgery and scheduled for surgery as indicated. All potential risks, benefits, complications, alternatives, rehab potential for incomplete relief of symptoms, need for further surgery, DVT, PE, , persistent pain, swelling, scarring, weakness, neurovascular injury, wound complications, hardware failure, nonunion, malunion, bone fracture, DVT, PE, and were discussed with the patient. The patient decided to proceed with the procedure as indicated. DESCRIPTION OF PROCEDURE: The patient underwent a popliteal block in the preoperative holding area. He was taken to the operative suite and placed supine on the operating table. After review of consent and identification of proper site, the patient was anesthetized, LMA was placed. Tourniquet was placed high on the right thigh over cast padding. Right lower extremity was then sterilely prepped and draped in the usual sterile fashion, elevated and exsanguinated with an Esmarch bandage and tourniquet inflated to 350 mmHg. After surgical timeout was performed, a 15 blade scalpel was used to make an incision over the lateral malleolus extending from the distal aspect proximally. The incision was deepened through skin and subcutaneous tissue with a 15 blade scalpel. Meticulous hemostasis was achieved with electrocautery. Phill rakes were applied. Careful dissection was performed with scissors through the fascia down to the level of the peroneal tendons, which were then retracted posteriorly. The branch of the deep peroneal nerve was then retracted anteriorly and the periosteum and fascia was then incised to visualize the bone and fractures. Multiple fracture lines were evident with comminution and displacement. Ankle was shortened and in a valgus position. The fracture fragments were then carefully debrided with a dental pick and irrigated with sterile saline and suctioned until dry. Next, the fragments were then reduced distally. Attempt was made with a lag screw; however, due to the severe comminution, a suture cerclage method was used with bone clamps to stabilize the distal fracture fragment and butterfly fragment. Next, the proximal butterfly fragment was then stabilized back to the proximal fibular shaft, which was primarily in continuity. Multiple bone clamps were utilized to stabilize the multiple fragments in near anatomic alignment under live fluoroscopic assistance. This was then followed by contouring of a 12-hole one- third tubular locking plate using bending irons. The plate was then provisionally fixed to the lateral malleolus and fibular shaft with multiple bone clamps. Once satisfactory alignment and length was then achieved, multiple locking bone screws were used to stabilize the fractures of the fibula with the segmental defect with locking bone screws. Next, a secondary incision was made centered over the medial malleolus with a 15 blade scalpel. The incision was deepened through skin and subcutaneous tissue. Meticulous hemostasis was achieved with electrocautery. Full thickness skin flaps were developed. Phill rakes were applied, revealing the saphenous vein, which was then mobilized with Metzenbaum scissors and retracted with a house retractor. Next, the ripped periosteum was then visualized. This was then carefully debrided with a 15 blade scalpel. The fracture was then opened with a Phill rake and the fracture was then debrided and irrigated with sterile saline, debrided with a rongeur and a dental pick. Next, the medial malleolar large bone fragment was then reduced and then pinned in place with two 1.25 mm guide pins under live fluoroscopic assistance achieving near anatomic fixation with two 4.0 cannulated screws. Guide pins were removed. The medial incision was then copiously irrigated with sterile saline. The periosteum was closed using 2-0 Vicryl, the dermis closed buried interrupted 3-0 Vicryl. Skin was closed using nylon sutures. Next, the foot was held with 5 degrees dorsiflexion to stabilize the ankle mortise. Under live fluoroscopic assistance, a fully threaded 4.5 mm syndesmotic screw was used to stabilize the unstable syndesmosis as confirmed with multiple radiographic stress views. Next, after the syndesmotic screw was in place, stress view was then repeated, and the syndesmosis was noted to be stable. The posterior malleolar fragment was reduced into a near anatomic alignment and was sufficiently small to be treated without direct instrumentation. The lateral incision was then copiously irrigated with sterile saline until clear. Deep soft tissue was closed using 2-0 Vicryl, the dermis was closed using buried interrupted 2-0 Vicryl. Skin was closed using 4-0 nylon. Sterile compressive dressing and a bulky Joseph Tapia plaster splint was applied overwrapped with an Felice wrap. The tourniquet was released. The patient was awakened and taken to recovery in stable condition. Job ID: [id number] [facility]
[2022-06-21] MEDS: ceFAZolin 2000MG 2,000 MG/15 ML SYR IV SCH ×2 (05:33→11:47)
--- NOTE | 2022-06-21 06:17 | Orthopedic Progress Note ---
Date of Service June 21, 2022 Assessment & Plan (1) Closed right trimalleolar fracture: Plan POD #1 ice/elevate for swelling NWB right lower leg pain control dvt proph w/ krishan/scd/asa Plan for discharge home later today, will need follow-up appointment with Dr. Navarrete and 2 weeks in the office Admission and Anticipated Discharge Date Admission Date: June 20, 2022 Subjective POD #1 s/p Open reduction and internal fixation of right displaced, comminuted trimalleolar ankle fracture dislocation. with internal fixation of syndesmotic disruption with a Synthes 4.5 mm solid screw. Review of Systems Review of Systems: All systems reviewed & are unremarkable except as noted in HPI & below Constitutional: no fever, no chills and no sweats Respiratory: no cough and no dyspnea Cardiovascular: no chest pain, no dyspnea and no orthopnea Gastrointestinal: no abdominal pain, no nausea and no vomiting Musculoskeletal: as per Subjective / HPI Physical Exam Physical Exam: Vital Signs Temp Pulse Pulse Pulse Pulse Resp BP 06/21/22 03:36 36.8 C 77 16 06/21/22 02:23 36.7 C 80 16 06/21/22 01:31 36.6 C 86 18 06/21/22 00:30 36.5 C 91 H 16 06/21/22 00:01 36.7 C 89 18 06/21/22 00:20 36.7 C 87 16 06/20/22 23:20 36.5 C 92 H 15 06/20/22 23:10 87 14 06/20/22 23:00 91 H 12 06/20/22 22:50 84 12 06/20/22 22:40 86 13 06/20/22 22:30 36.5 C 86 17 06/20/22 18:17 36.8 C 72 18 06/20/22 17:31 72 19 06/20/22 17:00 70 19 06/20/22 15:39 75 18 06/20/22 13:53 36.8 C 78 20 149/97 H BP Pulse Ox O2 Del Method O2 Flow Rate 06/21/22 03:36 126/71 92 Room Air 06/21/22 02:23 131/82 94 Room Air 06/21/22 01:31 121/74 91 Room Air 06/21/22 00:30 119/89 93 Room Air 06/21/22 00:01 129/84 93 Room Air 06/21/22 00:20 129/84 91 Room Air 06/20/22 23:20 124/84 93 Nasal Cannula 3 06/20/22 23:10 120/73 93 Nasal Cannula 3 06/20/22 23:00 134/91 94 Nasal Cannula 2 06/20/22 22:50 132/88 94 Nasal Cannula 2 06/20/22 22:40 145/84 H 93 Room Air 06/20/22 22:30 138/84 94 Room Air 06/20/22 18:17 144/89 H 96 Room Air 06/20/22 17:31 138/81 93 Room Air 06/20/22 17:00 93 Room Air 06/20/22 15:39 94 Room Air 06/20/22 13:53 98 Room Air Intake and Output 06/20/22 06/20/22 06/21/22 14:59 22:59 06:59 Intake Total 700 / 700 Output Total 380 / 380 Balance 320 / 320 Intake: IV Perioperative 700 / 700 Output: Urine 350 / 350 Estimated Blood Loss 30 Other: Weight 131.6 kg 131 kg Weight Measureme nt Method Built in [facility] Built in [facility] Patient Weight 06/21/22 06:59 Weight 131 kg Constitutional: WD/WN, vitals as above no acute distress Respiratory: normal respiratory effort, lungs clear to auscultation no respiratory distress, no labored breathing and does not use accessory muscles Cardiovascular: RRR, no murmur, no edema Gastrointestinal (Abdomen): normal bowel sounds, soft, nontender, no hepatosplenomegaly Musculoskeletal: Right ankle: Ankle currently in a well molded splint. He is able to wiggle his toes, sensation intact to light touch to the digits. Thigh is soft nontender no discomfort with gentle range of motion of his knee Results & Data ([facility]) Vital Signs (Past 12 Hours) Vital Signs Temp Pulse Pulse Pulse Resp BP Pulse Ox 06/21/22 03:36 36.8 C 77 16 126/71 92 06/21/22 02:23 36.7 C 80 16 131/82 94 06/21/22 01:31 36.6 C 86 18 121/74 91 06/21/22 00:30 36.5 C 91 H 16 119/89 93 06/21/22 00:01 36.7 C 89 18 129/84 93 06/21/22 00:20 36.7 C 87 16 129/84 91 06/20/22 23:20 36.5 C 92 H 15 124/84 93 06/20/22 23:10 87 14 120/73 93 06/20/22 23:00 91 H 12 134/91 94 06/20/22 22:50 84 12 132/88 94 06/20/22 22:40 86 13 145/84 H 93 06/20/22 22:30 36.5 C 86 17 138/84 94 06/20/22 18:17 36.8 C 72 18 144/89 H 96 O2 Del Method O2 Flow Rate 06/21/22 03:36 Room Air 06/21/22 02:23 Room Air 06/21/22 01:31 Room Air 06/21/22 00:30 Room Air 06/21/22 00:01 Room Air 06/21/22 00:20 Room Air 06/20/22 23:20 Nasal Cannula 3 06/20/22 23:10 Nasal Cannula 3 06/20/22 23:00 Nasal Cannula 2 06/20/22 22:50 Nasal Cannula 2 06/20/22 22:40 Room Air 06/20/22 22:30 Room Air 06/20/22 18:17 Room Air
[2022-06-21] MEDS ORDERED: LEVOTHYROXINE SODIUM 25 MCG TABLET PO SCH (06:30)
[2022-06-21] MEDS ORDERED: LEVOTHYROXINE SODIUM 200 MCG TABLET PO SCH (06:30)
[2022-06-21] MEDS ORDERED: amLODIPine BESYLATE 5 MG TAB PO SCH (09:00)
[2022-06-21] MEDS ORDERED: PANTOprazole 40 MG TAB PO SCH (09:00)
[2022-06-21] MEDS ORDERED: MULTIVITAMIN TAB PO SCH (09:00)
--- NOTE | 2022-06-21 09:37 | Electrocardiogram Report ---
Test Reason : Blood Pressure : / mmHG Vent. Rate : 075 BPM Atrial Rate : 075 BPM P-R Int : 142 ms QRS Dur : 092 ms QT Int : 376 ms P-R-T Axes : 046 001 039 degrees QTc Int : 419 ms Normal sinus rhythm Low voltage QRS Poor R wave progression, consider anterior ID vs. lead placement vs. LVH Nonspecific T wave abnormality Abnormal ECG When compared with ECG of 29-MAY-2019 20:59, No significant change was found Confirmed by Manny Neville ([id number]) on 06/21/2022 9:37:26 AM Referred By: REFERRED SELF Confirmed By:Manny Neville
--- NOTE | 2022-06-23 08:11 | Discharge Summary ---
Date of Service date of discharge: June 21, 2022 date of admission: 06-20-22 Admission HPI Per Admitting Provider Deep is a 41-year-old male presented to the emergency department after sustaining a fall and injuring his right ankle. Patient was in a chair similar to a rocking chair in his home, when the chair broke, and the patient landed awkwardly onto his ankle. He does not have any blood or bleeding. He is unable to ambulate. He rates the pain an 8/10 that worsens with certain movement. Principal Diagnosis right ankle trimalleolar fracture Discharge Exam Musculoskeletal Right ankle: Ankle currently in a well molded splint. He is able to wiggle his toes, sensation intact to light touch to the digits. Thigh is soft nontender no discomfort with gentle range of motion of his knee Discharge Data Allergies Allergy/AdvReac Type Severity Reaction Status Date / Time Cephalosporins Allergy Unknown KEFLEX Verified 05/29/19 22:15 Sulfa (Sulfonamide Allergy Unknown Verified 05/29/19 22:15 Antibiotics) Procedures Performed Operation Date: 06/20/22 13:05 Actual Procedures p Open Reduction Internal Fixation Right Trimalleolar Fracture(Right) - Sedrick Navarrete, Ordered Studies 06/20/22 FL ankle RT 2V Routine 06/20/22 19:22 US - OR guided needle placemen Routine 06/20/22 19:26 US - OR guided needle placemen Routine Hospital Course (1) Closed right trimalleolar fracture: Plan POD #1 ice/elevate for swelling NWB right lower leg pain control dvt proph w/ krishan/scd/asa Plan for discharge home later today, will need follow-up appointment with Dr. Navarrete and 2 weeks in the office Total Time Total Time Spent Total Time Spent (In Minutes): 20 Discharge Plan Discharge Items Patient Disposition: Home - Self-Care Reason For Visit: RT TRIMALLEOLAR ANKLE FRACTURE Discharge Diagnosis: s/p ORIF right ankle fracture with syndesmosis screw Activity: Per Instructions section Lifting: Wait until after follow-up appointment Weightbearing: Right non-weightbearing Non-emergency contact: Surgeon Call non-emergency contact if: you have any medication questions, your pain is not controlled, your pain is concerning for you and your temperature is above 101 Follow-up/Referrals: PCP,NO [Primary Care Provider] - Diet: Regular Addtl Attending Provider Instructions: ACTIVITY RECOMMENDATIONS: * Remain non weightbearing on your right leg SPECIAL CARE INSTRUCTIONS: * Some drainage onto the dressing is normal and is no cause for alarm. * Some swelling is natural especially after walking. When resting, keep your foot elevated above the level of your heart. * Call the doctor's office at if you notice increased drainage, fever over 101 degrees F. or severe constant pain. BANDAGE: * Leave bandage/cast in place unless otherwise directed. * Keep bandage/cast dry at all times. FOLLOW UP VISIT: If appointment is not already scheduled: Please call [facility] to make a follow-up appointment after your surgery at . You should follow-up 14 to 16 days after your surgery Pending Studies at Discharge: No Stand-Alone Forms: My [facility], Opioid Pain Management, Smoking Cessation Medications and DC Order Prescriptions: New aspirin 81 mg Tablet,Delayed Release (Dr/Ec) 81 mg PO BID 30 Days Qty: 60 0RF docusate sodium 100 mg Capsule 100 mg PO BID 10 Days Qty: 20 0RF oxycodone-acetaminophen [Percocet] 5-325 mg tablet 1 - 2 tab PO Q6H PRN (Reason: pain) Qty: 30 0RF Rx Instructions: Ongoing therapy, supervising Dr. Jeremi Navarrete. Max 6 tabs in 24 hours Continued amlodipine 5 mg tablet 5 mg PO QAM levothyroxine 25 mcg tablet 25 mcg PO QAM levothyroxine 200 mcg tablet 200 mcg PO QAM meclizine 25 mg tablet 25 mg PO TID PRN (Reason: dizziness) Qty: 15 0RF ondansetron 4 mg tablet,disintegrating 4 mg PO Q6H PRN (Reason: nausea and vomiting) Qty: 10 0RF Discharge Orders: Discharge Order (Routine); Ordered 06/21/22 Ordered By: Dimitris Bashir/Other Patient Handouts: Walker Stand Non Wt Bearing Steps Admission Data Admit Date/Time: 06/20/22 19:37 Attending Provider: Sedrick Navarrete Admit Provider: Sedrick Navarrete Primary Care Provider: PCP,NO Other Interventions: Discharge Summary Assessment (RN) Last Done: 06/21/22 11:56
== END 2022-06-21 13:33 | disposition home or self-care (01) ==
LOC: ED 13:38 → OR 18:15 → 3W 18:15 → OR 18:36